=== PATIENT | female | born 1950 | race Caucasian/White ===

== ENCOUNTER 2020-11-04 11:49 | Day surgery (SDC) | payer MEDICARE ==
[2020-11-03 11:49] VITALS: BMI 24.5
[2020-11-04] MEDS ORDERED: AFRIN NASAL MIST 15 ML BOT ONE ×2 (12:39→13:36)
[2020-11-04 13:35] LABS: Anion Gap 13 mmol/L (10-20); BUN (Urea Nitrogen) 31 mg/dL (9.8-20.1); Calc. Creatinine Clearance 53 mL/min (70-130); Calcium 9.5 mg/dL (7.8-10.44); Carbon Dioxide 22 mmol/L (23-31); Chloride 111 mmol/L (98-107); Glucose 105 mg/dL (83-110); Potassium 4.8 mmol/L (3.5-5.1); Sodium 141 mmol/L (136-145)
[2020-11-04] MEDS ORDERED: EPINEPHrine 1 MG/ML AMP ONE (13:36)
[2020-11-04] MEDS ORDERED: Lidocaine 1% w/Epinephrine 1:100K 20 ML VIAL ONE (13:36)
[2020-11-04] MEDS ORDERED: Fentanyl 100 MCG/2 ML VIAL ONE (13:45)
[2020-11-04] MEDS ORDERED: PROPOFOL 200 MG/20 ML VIAL ONE (13:56)
[2020-11-04] MEDS ORDERED: ePHEDrine Sulfate 50 MG/10 ML VIAL ONE (13:56)
[2020-11-04] MEDS ORDERED: Ketorolac Tromethamine 30 MG/ML VIAL ONE (13:56)
[2020-11-04] MEDS ORDERED: Rocuronium Bromide 10 MG/ML (10ML VIAL) ONE (13:56)
[2020-11-04] MEDS ORDERED: Lidocaine 1% PF 5 ML VIAL ONE (13:56)
[2020-11-04] MEDS ORDERED: Glycopyrrolate 0.2 MG/ML 5 ML SYRINGE ONE (13:56)
[2020-11-04] MEDS ORDERED: Dexamethasone 20 MG/5 ML VIAL ONE (13:56)
[2020-11-04] MEDS ORDERED: Labetalol HCl 100 MG/20 ML VIAL ONE (13:56)
[2020-11-04] MEDS ORDERED: Ondansetron PF 4 MG/2 ML Vial ONE (13:56)
== END 2020-11-04 16:20 | disposition home or self-care (01) ==
LOC: SDC 11:49
PROVIDERS: ATTEND Specialist
PROC: 09NM8ZZ Release Nasal Septum, Via Natural or Artificial Opening Endoscopic (ICD-10-PCS; principal; 2020-11-04)
PROC: 09SM0ZZ Reposition Nasal Septum, Open Approach (ICD-10-PCS; 2020-11-04)
PROC: 09BM8ZZ Excision of Nasal Septum, Via Natural or Artificial Opening Endoscopic (ICD-10-PCS; 2020-11-04)
DX: J34.2 Deviated nasal septum (principal); J34.3 Hypertrophy of nasal turbinates; J34.89 Other specified disorders of nose and nasal sinuses; I10 Essential (primary) hypertension; E03.9 Hypothyroidism, unspecified; E11.9 Type 2 diabetes mellitus without complications; E78.5 Hyperlipidemia, unspecified; J45.909 Unspecified asthma, uncomplicated; K21.9 Gastro-esophageal reflux disease without esophagitis; K75.81 Nonalcoholic steatohepatitis (NASH); I25.10 Atherosclerotic heart disease of native coronary artery without angina pectoris; Z79.02 Long term (current) use of antithrombotics/antiplatelets; Z79.4 Long term (current) use of insulin; Z79.899 Other long term (current) drug therapy; Z88.1 Allergy status to other antibiotic agents; Z88.8 Allergy status to other drugs, medicaments and biological substances; Z95.5 Presence of coronary angioplasty implant and graft
CPT/HCPCS: 80048; 85014; 85018; 93005; 93010; J0171; J1100; J1885; J2405; J2704; J3010